=== PATIENT | male | born 1965 | race Caucasian/White ===

== ENCOUNTER 2020-08-06 16:40 | Inpatient (IN) | payer BC, OTHER ==
[~2020-08-06] VITALS: Ht 185.4 cm; Wt 135.0 kg
[~2020-08-06 16:40] MED LIST: ASPI-1265 PO; CARCD120C PO; FLEC100T2 PO
[2020-08-06 19:10] LABS: BASOPHILS % (AUTO) 0.5 % (0-1); EOSINOPHILS # (AUTO) 0.2 X10'3 (0-0.9); EOSINOPHILS % (AUTO) 2.1 % (0-6); HEMATOCRIT 48.5 % (42.0-52.0); HEMOGLOBIN 16.3 g/dl (14.0-17.9); LYMPHOCYTES # (AUTO) 1.2 X10'3 (1.1-4.8); LYMPHOCYTES % (AUTO) 16.6 % (21-51); MEAN CORPUSCULAR HGB CONC 33.5 g/dL (33.0-36.5); MEAN CORPUSCULAR VOLUME 95.5 FL (78-98); MEAN PLATELET VOLUME 8.1 FL (7.4-10.4); MONOCYTES # (AUTO) 0.4 X10'3 (0-0.9); MONOCYTES % (AUTO) 5.6 % (2-12); NEUTROPHILS # (AUTO) 5.5 X10'3 (1.8-7.7); NEUTROPHILS % (AUTO) 75.2 % (42-75); PLATELET COUNT 427 X10'3 (140-440); RED BLOOD COUNT 5.08 X10'6 (4.70-6.10); RED CELL DISTRIBUTION WIDTH 13.8 % (11.5-14.5); WHITE BLOOD COUNT 7.3 X10'3 (4.5-11.0)
[2020-08-06 19:24] LABS: ALANINE AMINOTRANSFERASE 150 U/L (12-78); ALBUMIN 2.5 G/DL (3.4-5.0); ALBUMIN/GLOBULIN RATIO 0.5 (1.1-1.5); ALKALINE PHOSPHATASE 107 IU/L (46-116); ANION GAP 9 (8-16); ASPARTATE AMINO TRANSFERASE 108 U/L (10-37); BILIRUBIN,TOTAL 0.8 MG/DL (0.1-1.0); BLOOD UREA NITROGEN 11 MG/DL (7-18); BUN/CREATININE RATIO 10.7 (5.4-32.0); CALCIUM 8.9 MG/DL (8.5-10.1); CHLORIDE 101 MMOL/L (99-107); CREATININE 1.03 MG/DL (0.60-1.10); GLUCOSE 103 MG/DL (70-104); POTASSIUM 4.2 MMOL/L (3.5-5.1); SODIUM 136 MMOL/L (135-145); TOTAL CARBON DIOXIDE 26.5 MMOL/L (24-32); TOTAL PROTEIN 7.4 G/DL (6.4-8.2); eGFR 75 ML/MIN
[2020-08-06] MEDS ORDERED: diltiazem 5mg/ml 5ml inj. IV ONE (19:30)
[2020-08-06 20:02] LABS: C-REACTIVE PROTEIN 7.56 MG/DL (0.0-0.5); LACTATE DEHYDROGENASE 355 U/L (85-227); MAGNESIUM 2.2 MG/DL (1.5-2.4); TROPONIN I < 0.04 NG/ML (0.0-0.05)
[2020-08-06 20:03] LABS: D-DIMER 1.49 MG/L FEU (0-0.50)
[2020-08-06 20:06] LABS: FERRITIN 1820 NG/ML (26-388)
[2020-08-06] MEDS ORDERED: dexamethasone 4mg tablet PO PRN (20:15)
[2020-08-06] MEDS ORDERED: iohexol 350MG/ML 100ml bottle IV ONE (20:46)
[2020-08-07] VITALS (7 sets, daily range): BP systolic 101–128; BP diastolic 67–93
[2020-08-07] MEDS ORDERED: ALBUTEROL INHALER 1 PUFF/90 MCG INHALER IH PRN (00:45)
[2020-08-07] MEDS ORDERED: magnesium 2GM in 50ml NS 50 ML IV PRN (00:45)
[2020-08-07] MEDS ORDERED: potassium Cl 20 mEq SR tablet PO PRN ×2 (00:45)
[2020-08-07] MEDS ORDERED: potassium CL 10mEq/100ml bag 100 ML IV PRN ×2 (00:45)
[2020-08-07] MEDS ORDERED: bisacodyl 10mg suppository rectal RC PRN (00:45)
[2020-08-07] MEDS ORDERED: magnesium hydroxide 30ml (MOM) UD suspension PO PRN (00:45)
[2020-08-07] MEDS ORDERED: mag hydrox/Alum hydrox/simeth 30ml oral suspension PO PRN (00:45)
[2020-08-07] MEDS ORDERED: HYDROmorphone inj. 0.5 MG/0.5 ML DISP.SYRIN IV PRN (00:45)
[2020-08-07] MEDS ORDERED: magnesium Cl slow-release 64mg tablet PO PRN (00:45)
[2020-08-07] MEDS ORDERED: acetaminophen 325mg tablet PO PRN ×2 (00:45)
[2020-08-07] MEDS ORDERED: HYDROcodone/acetaminophen 5mg/325mg tablet PO PRN (00:45)
[2020-08-07] MEDS ORDERED: ondansetron/PF 4mg/2ml inj IV PRN (00:45)
[2020-08-07] MEDS ORDERED: magnesium 4gm in 100ml NS 100 ML IV PRN (00:45)
[2020-08-07] MEDS ORDERED: metoclopramide 5 mg/ml inj IV PRN (00:45)
[2020-08-07] MEDS ORDERED: acetaminophen 650mg rectal suppository RC PRN (00:45)
[2020-08-07] MEDS ORDERED: HYDROcodone/acetaminophen 10/325mg tab PO PRN (00:45)
[2020-08-07] MEDS ORDERED: DESV100T16 (01:36)
[2020-08-07] MEDS ORDERED: APIX5TAB3 (01:36)
[2020-08-07] MEDS ORDERED: diltiazem 5mg/ml 5ml inj. IV ONE (01:40)
[2020-08-07] MEDS ORDERED: diltiazem-NS 100mg/100ml 100 ML IV SCH (01:40)
[2020-08-07] MEDS: normal saline 1000ml 1,000 ML IV SCH ×3 (02:27→19:28)
--- NOTE | 2020-08-07 03:00 | NUR ---
I have received report from Alanis SORIANO and had the opportunity to ask questions.
--- NOTE | 2020-08-07 03:10 | NUR ---
Patient arrived on floor from ER via gurney. Two RN skin check was performed with no remarkable findings. MRSA swab was collected. Vital signs are as follows BP 128/88, o2 94, RR 24, HR 127, Temp 97.6. No Pain at this time, alert and oriented x 4. Call light in reach, BLL, SRx2. Patient is stable in room, will continue to monitor.
--- NOTE | 2020-08-07 06:22 | NUR ---
Problems reprioritized. Patient report given, questions answered & plan of care reviewed with Tory SORIANO.
--- NOTE | 2020-08-07 06:31 | NUR ---
Patient in room PCU 3010. I have received report from BO Masterson and had the opportunity to ask questions and assume patient care.
--- NOTE | 2020-08-07 06:42 | NUR ---
Patient in room PCU 3010. I have received report from BO Masterson and had the opportunity to ask questions and assume patient care.
[2020-08-07] MEDS ORDERED: dexamethasone 4mg tablet PO ONE (07:30)
[2020-08-07] MEDS: flecainide 50mg tablet PO SCH ×2 (07:49→19:27)
[2020-08-07] MEDS: K and/or MAG REPLACEMENT MC SCH ×2 (08:00→19:22)
[2020-08-07 08:27] LABS: LYMPHOCYTES # (AUTO) 0.6 X10'3 (1.1-4.8); WHITE BLOOD COUNT 5.4 X10'3 (4.5-11.0)
[2020-08-07 08:29] LABS: BASOPHILS # (AUTO) 0.1 X10'3 (0-0.2); BASOPHILS % (AUTO) 1.1 % (0-1); EOSINOPHILS % (AUTO) 0.5 % (0-6); HEMATOCRIT 47.6 % (42.0-52.0); HEMOGLOBIN 16.4 g/dl (14.0-17.9); LYMPHOCYTES % (AUTO) 11.8 % (21-51); MEAN CORPUSCULAR HGB CONC 34.5 g/dL (33.0-36.5); MEAN CORPUSCULAR VOLUME 95.7 FL (78-98); MONOCYTES # (AUTO) 0.3 X10'3 (0-0.9); MONOCYTES % (AUTO) 4.7 % (2-12); NEUTROPHILS # (AUTO) 4.4 X10'3 (1.8-7.7); NEUTROPHILS % (AUTO) 81.9 % (42-75); PLATELET COUNT 475 X10'3 (140-440); RED BLOOD COUNT 4.98 X10'6 (4.70-6.10)
[2020-08-07 08:35] LABS: D-DIMER 1.11 MG/L FEU (0-0.50)
[2020-08-07 09:08] LABS: C-REACTIVE PROTEIN 7.04 MG/DL (0.0-0.5); LACTATE DEHYDROGENASE 336 U/L (85-227)
[2020-08-07 09:09] LABS: FERRITIN 1679 NG/ML (26-388)
[2020-08-07] MEDS ORDERED: diltiazem 30mg tablet PO ONE (09:25)
[2020-08-07] MEDS: apixaban 5mg tablet PO SCH ×2 (10:06→19:27)
[2020-08-07] MEDS ORDERED: ondansetron 4mg rapidly disintigrating tab PO PRN (11:50)
[2020-08-07] MEDS ORDERED: guaiFENesin ER 600mg tablet PO ONE (12:15)
--- NOTE | 2020-08-07 13:44 | NUR ---
Paged Dr Short PAGER ID: [phone] MESSAGE: Re Kenji Greene Rm [id number] Pt's heart rate is still sustaining 130's, he has Cardizem PO due at 1400. Please Advise if you want anything changed. Thanks Tory [phone]
[2020-08-07] MEDS ORDERED: diltiazem 30mg tablet PO SCH (14:00)
[2020-08-07] MEDS ORDERED: digoxin 250mcg/ml 2ml ampule IV ONE (14:25)
[2020-08-07] MEDS: diltiazem 30mg tablet PO SCH ×2 (15:03→19:27)
--- NOTE | 2020-08-07 17:37 | NUR ---
Per Dr Short, if patient's heart rate is still in the one teens at 1900, give a one time dose of Digoxin 0.5mg IV push and closely monitor heart rate.
--- NOTE | 2020-08-07 18:17 | NUR ---
Problems reprioritized. Patient report given, questions answered & plan of care reviewed with BO Masterson. Informed nurse that patient is to get a one time push of Digoxin 0.5mg IV if heart rate is still sustaining in the one teens. All patient needs met at this time.
--- NOTE | 2020-08-07 18:37 | NUR ---
Patient in room PCU 3010. I have received report from Tory SORIANO and had the opportunity to ask questions and assume patient care.
[2020-08-07] MEDS: guaiFENesin ER 600mg tablet PO SCH (19:27)
[2020-08-07] MEDS ORDERED: temazepam 15mg capsule PO PRN (21:00)
--- NOTE | 2020-08-07 23:41 | NUR ---
Patient in room PCU 3010. I have received report from HOMA SORIANO and had the opportunity to ask questions and assume patient care.
--- NOTE | 2020-08-07 23:46 | NUR ---
AGREE WITH FORMER [employer]
[2020-08-08] MEDS: diltiazem 30mg tablet PO SCH ×2 (01:31→08:18)
[2020-08-08 06:03] LABS: BASOPHILS % (AUTO) 0.1 % (0-1); EOSINOPHILS % (AUTO) 0.1 % (0-6); LYMPHOCYTES # (AUTO) 0.9 X10'3 (1.1-4.8); NEUTROPHILS # (AUTO) 8.2 X10'3 (1.8-7.7)
[2020-08-08 06:04] LABS: HEMATOCRIT 46.9 % (42.0-52.0); LYMPHOCYTES % (AUTO) 9.1 % (21-51); MEAN CORPUSCULAR HEMOGLOBIN 32.6 PG (27.0-31.0); MEAN CORPUSCULAR HGB CONC 34.1 g/dL (33.0-36.5); MEAN CORPUSCULAR VOLUME 95.5 FL (78-98); MONOCYTES # (AUTO) 0.3 X10'3 (0-0.9); MONOCYTES % (AUTO) 3.1 % (2-12); NEUTROPHILS % (AUTO) 87.6 % (42-75); PLATELET COUNT 551 X10'3 (140-440); RED BLOOD COUNT 4.91 X10'6 (4.70-6.10); RED CELL DISTRIBUTION WIDTH 13.9 % (11.5-14.5); WHITE BLOOD COUNT 9.4 X10'3 (4.5-11.0)
[2020-08-08 06:07] LABS: D-DIMER 0.89 MG/L FEU (0-0.50)
[2020-08-08 06:29] LABS: ALANINE AMINOTRANSFERASE 110 U/L (12-78); ALBUMIN 2.6 G/DL (3.4-5.0); ALBUMIN/GLOBULIN RATIO 0.5 (1.1-1.5); ALKALINE PHOSPHATASE 103 IU/L (46-116); ANION GAP 8 (8-16); ASPARTATE AMINO TRANSFERASE 47 U/L (10-37); BILIRUBIN,TOTAL 0.7 MG/DL (0.1-1.0); BLOOD UREA NITROGEN 16 MG/DL (7-18); BUN/CREATININE RATIO 15.8 (5.4-32.0); C-REACTIVE PROTEIN 3.26 MG/DL (0.0-0.5); CALCIUM 9.2 MG/DL (8.5-10.1); CHLORIDE 103 MMOL/L (99-107); CREATININE 1.01 MG/DL (0.60-1.10); FERRITIN 954 NG/ML (26-388); GLUCOSE 138 MG/DL (70-104); LACTATE DEHYDROGENASE 438 U/L (85-227); MAGNESIUM 2.4 MG/DL (1.5-2.4); POTASSIUM 4.9 MMOL/L (3.5-5.1); SODIUM 137 MMOL/L (135-145); TOTAL CARBON DIOXIDE 25.9 MMOL/L (24-32); TOTAL PROTEIN 7.5 G/DL (6.4-8.2); eGFR 76 ML/MIN
--- NOTE | 2020-08-08 06:30 | NUR ---
Patient in room PCU 3010. I have received report from BO Tai and had the opportunity to ask questions and assume patient care.
[2020-08-08 07:00] VITALS: BP 130/100
[2020-08-08 07:32] LABS: PLATELET ESTIMATE INCREASED; TOTAL CELLS COUNTED 100
[2020-08-08] MEDS: apixaban 5mg tablet PO SCH (08:18)
[2020-08-08] MEDS: guaiFENesin ER 600mg tablet PO SCH (08:18)
[2020-08-08] MEDS: flecainide 50mg tablet PO SCH (08:19)
[2020-08-08 10:00] VITALS: BP 88/71
[2020-08-08] MEDS ORDERED: GUAI600T45 PO (11:09)
[2020-08-08 12:00] VITALS: BP 103/73
--- NOTE | 2020-08-08 12:10 | NUR ---
Patient stable for discharge per md orders. No IV access to take out. library monitor discontinued. N95 mask applied, patient ad mayte to wheelchair. All return precautions and discharge instructions gone over with patient in detail. Prescriptions sent to patient's primary pharmacy. Vital signs stable. Patient wheeled to the lobby with nursing staff to patient's private vehicle. Private vehicle seen leaving the premises.
== END 2020-08-08 12:16 | disposition home or self-care (01) | DRG 308 ==
LOC: ER 16:40 → ED HOLD 08-07 00:42 → PCU 3S 08-07 03:00
PROVIDERS: ADMIT Family Medicine; ATTEND Internal Medicine
PROC: B32T1ZZ Computerized Tomography (CT Scan) of Left Pulmonary Artery using Low Osmolar Contrast (ICD-10-PCS; principal; 2020-08-06)
PROC: B32S1ZZ Computerized Tomography (CT Scan) of Right Pulmonary Artery using Low Osmolar Contrast (ICD-10-PCS; 2020-08-06)
DX: I48.0 Paroxysmal atrial fibrillation (principal); J12.89 Other viral pneumonia; U07.1 COVID-19; E66.01 Morbid (severe) obesity due to excess calories; Z79.01 Long term (current) use of anticoagulants; Z79.82 Long term (current) use of aspirin; Z79.899 Other long term (current) drug therapy; Z90.49 Acquired absence of other specified parts of digestive tract; Z68.39 Body mass index [BMI] 39.0-39.9, adult
CPT/HCPCS: 36415; 71045; 71275; 80053; 82728; 83615; 83735; 83880; 84145; 84484; 85007; 85025; 85379; 85384; 86140; 87081; 93005; 94760; 96374; 99285; G0378; J1160; J3490; J7030; Q9967